=== PATIENT | male | born 1990 ===

== ENCOUNTER 2018-01-20 03:40 | Emergency (ER) | payer SELFPAY ==
[2018-01-20 03:54] LABS: Bicarbonate (HCO3v) 21.8 mmol/L (1.0-85.0); CO2 Tension (PvCO2) 31.3 mmHg (41.0-51.0); Calcium, Ionized 1.04 mmol/L (1.12-1.32); Hemoglobin - Calc 16.6 g/dL (12.0-18.0); O2 Tension (PvO2) 38.1 mmHg (35.0-45.0); T. Carbon Dioxide 22.8 mmol/L (1.0-85.0); pH (Venous) 7.451 (7.35-7.45); vO2 Saturation-calc 75.9 % (94-98)
[2018-01-20] MEDS ORDERED: Ondansetron HCl/PF 4 MG/2 ML Vial SLOW IVP PRN (04:05)
[2018-01-20 04:08] LABS: #Basophils 0.1 thou/uL (0.0-0.2); #Lymphocytes 1.8 thou/uL (1.20-3.40); #Monocytes 0.4 thou/uL (0.11-0.59); #Neutrophils 5.4 thou/uL (1.40-6.50); %Basophils 1.3 % (0.0-1.0); %Eosinophils 0.5 % (0.0-10.0); %Lymphocytes 23.3 % (21.0-51.0); %Monocytes 5.1 % (0.0-10.0); %Neutrophils 69.9 % (42.0-75.0); Hemoglobin 15.5 g/dL (14.0-18.0); Mean Corpuscular HGB CONC 34.7 g/dL (32.0-36.0); Mean Corpuscular Hemoglobin 30.8 pg (27.0-31.0); Mean Corpuscular Volume 88.6 fL (78.0-98.0); Mean Platelet Volume 7.9 fL (7.4-10.4); Platelet Count 208 thou/uL (130-400); RBC Distribution Width 11.7 % (11.5-14.5); Red Blood Cell (RBC) Count 5.03 mill/uL (4.70-6.10); White Blood Cell (WBC) Count 7.8 thou/uL (4.8-10.8)
[2018-01-20 04:31] LABS: Acetaminophen Less than 6.0 mcg/mL (10.0-30.0); Alcohol 156 mg/dL (Less than 10); Lipase 16 U/L (8-78); Salicylate Less than 8.0 mg/dL (15.0-30.0)
[2018-01-20 04:37] LABS: ALT (SGPT) 29 U/L (8-55); AST (SGOT) 21 U/L (5-34); Albumin 4.5 g/dL (3.5-5.0); Alkaline Phosphatase 68 U/L (40-150); Anion Gap 19 mmol/L (10-20); BUN (Urea Nitrogen) 9 mg/dL (8.9-20.6); Bilirubin, Total 0.8 mg/dL (0.2-1.2); CK (CPK) 125 U/L (30-200); Calc. Creatinine Clearance 0 mL/min (70-130); Calcium 9.2 mg/dL (7.8-10.44); Carbon Dioxide 19 mmol/L (22-29); Chloride 103 mmol/L (98-107); Estimated GFR-MDRD Greater than 90; Globulin 2.7 g/dL (2.4-3.5); Glucose 217 mg/dL (70-105); Potassium 3.1 mmol/L (3.5-5.1); Protein, Total 7.2 g/dL (6.0-8.3); Sodium 138 mmol/L (136-145)
--- NOTE | 2018-01-20 07:39 | RAD ---
SINGLE VIEW OF THE CHEST: COMPARISON: None. HISTORY: Vomiting blood. The patient drank 7-10 vodka drinks. FINDINGS: Single view of the chest shows a normal sized cardiomediastinal silhouette. There is no evidence of c onsolidation, mass, or pleural effusion. The bones are unremarkable. IMPRESSION: No evidence of acute cardiopulmonary disease. POS: [facility]
--- NOTE | 2018-01-20 09:21 | CT ---
PRELIMINARY REPORT/[facility]/EMERGENTY AFTER-HOURS PROCEDURE CT Head Without Intravenous Contrast CLINICAL HISTORY: The patient is a 27 years male; Signs and symptoms; Altered mental status/memory loss; Patient HX: M2 6 brought in by friends via pov. Pt is a diabetic, has not checked his sugars, and has had 6-10 glass es of vodka this evening. 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 Sugars at ed are 216. BP of 115/77. Pt is a&o2, responsive to verbal stimulus, protected airway, positive gag reflux. Examination order is timed 01/20/2018 4:17 AM. TECHNIQUE: Axial computed tomography images of the head/brain without intravenous contrast. COMPARISON: No relevant prior studies available. FINDINGS: BRAIN: No acute hemorrhage. Ca white differentiation is intact. No evidence of acute territorial in farct. No evidence of extra-axial fluid collection. No evidence of mass. No evidence of mass effect or midline shift. No acute abnormality evident. VENTRICLES: Unremarkable as visualized. No ventriculomegaly. BONES/JOINTS: No acute fracture. SOFT TISSUES: Unremarkable as visualized. SINUSES: There is mucosal thickening ethmoid air cells. MASTOID AIR CELLS: Unremarkable as visualized. No mastoid effusion. IMPRESSION: 1. No evidence of acute intracranial finding. Thank you for allowing us to participate in the care of your patient. Dictated and Authenticated by: Maya Angel MD 01/20/2018 5:05 AM Central Time ([place] & [place]) FINAL REPORT EMERGENT AFTER HOURS CT OF THE BRAIN WITHOUT CONTRAST: FINDINGS/IMPRESSION: I agree with the findings and impression given in the preliminary report per [facility] physician. No yves dence of acute intracranial abnormality. POS: [facility]
== END 2018-01-20 06:34 | disposition home or self-care (01) ==
LOC: ERS 03:40
DX: F10.129 Alcohol abuse with intoxication, unspecified (principal); R41.82 Altered mental status, unspecified; E11.9 Type 2 diabetes mellitus without complications; F17.210 Nicotine dependence, cigarettes, uncomplicated
CPT/HCPCS: 36415; 70450; 71045; 80053; 80307; 82010; 82140; 82330; 82550; 82803; 83690; 85025; 93005; 96361; 96374; J2405